=== PATIENT | female | born 1965 | race Caucasian/White ===

== ENCOUNTER 2017-06-05 03:34 | Inpatient (IN) | payer OTHER, MEDICARE ==
[2017-06-05] MEDS: HEPARIN for IV BOLUS 10,000 UNIT/10 ML VIAL. IV (04:14)
[2017-06-05] MEDS: ATROPINE 0.5 MG/5 ML DISP.SYRINGE. IV ×2 (04:14)
[2017-06-05] MEDS: LIDOCAINE 1% PF 2 ML VIAL. IV (04:15)
[2017-06-05] MEDS: HEPARIN 25,000UTS/500ML PREMIX 500 ML IV ×2 (04:16→05:16)
[2017-06-05] MEDS ORDERED: BIVALIRUDIN 250 MG VIAL. IV (04:21)
[2017-06-05] MEDS ORDERED: ONDANSETRON PF 4 MG/2 ML VIAL. IV (04:30)
[2017-06-05] MEDS ORDERED: FLUMAZENIL 0.5 MG/5 ML VIAL. IV (04:52)
[2017-06-05] MEDS: IV NORMAL SALINE 1000ML BAG 1,000 ML IV ×2 (05:00→12:01)
[2017-06-05] MEDS: LIDOCAINE 2% 20 ML VIAL. IJ (05:15)
[2017-06-05] MEDS ORDERED: NITROGLYCERIN SUBLINGUAL 0.4 MG BOTTLE OF 25. SL (05:15)
[2017-06-05] MEDS: NITROGLYCERIN 200 MCG/2 ML SYRINGE FOR CATH/VASC LAB. IART (05:15)
[2017-06-05] MEDS: IODIXANOL 320 MG/ML 100 ML VIAL. IART (05:15)
[2017-06-05] MEDS ORDERED: ACETAMINOPHEN 325 MG TABLET. PO (05:15)
[2017-06-05] MEDS: BIVALIRUDIN 250 MG VIAL. IV (05:16)
[2017-06-05] MEDS: CLOPIDOGREL BISULFATE 75 MG TABLET PO ×2 (05:17→05:48)
[2017-06-05] MEDS: FLUMAZENIL 0.5 MG/5 ML VIAL. IV (05:46)
[2017-06-05] MEDS: IV NORMAL SALINE 500ML BAG 500 ML IV (07:15)
[2017-06-05 08:24] LABS: TROPONINI 1.954 ng/mL (0.000-0.055)
[2017-06-05] MEDS ORDERED: ANTI-COAG MONITOR BY PHARMACY. MC (08:30)
[2017-06-05] MEDS: fentaNYL PF VIAL 100 MCG/2 ML VIAL IV ×2 (09:07→20:30)
[2017-06-05 09:14] LABS: BASO # 0.1 x10^3/uL (0.0-0.2); BASO % 0 % (0-3); EOS % 0 % (0-3); HEMATOCRIT 29.9 % (36.0-47.0); HEMOGLOBIN 9.7 g/dL (12.0-15.5); LYMPH # 1.8 x10^3/uL (1.0-4.8); LYMPH % 10 % (24-48); MEAN CORPUSCULAR HEMOGLOBIN 26 pg (25-35); MEAN CORPUSCULAR HGB CONC 33 g/dL (31-37); MEAN CORPUSCULAR VOLUME 79 fL (79-100); MONO # 0.4 x10^3/uL (0.0-1.1); MONO % 2 % (0-9); NEUT # 16.1 x10^3uL (1.8-7.7); NEUT % 87 % (31-73); PLATELET COUNT 344 x10^3/uL (140-400); RED BLOOD COUNT 3.81 x10^6/uL (3.50-5.40); RED CELL DISTRIBUTION WIDTH 15.9 % (11.5-14.5); WHITE BLOOD COUNT 18.4 x10^3/uL (4.0-11.0)
[2017-06-05 09:15] LABS: ADD MAN DIFF? YES
[2017-06-05 09:25] LABS: ANION GAP 6 (6-14); BLOOD UREA NITROGEN 18 mg/dL (7-20); CALCIUM 7.9 mg/dL (8.5-10.1); CARBON DIOXIDE 26 mmol/L (21-32); CHLORIDE 102 mmol/L (98-107); GFR 58.2; GLUCOSE 270 mg/dL (70-99); POTASSIUM 4.6 mmol/L (3.5-5.1); SODIUM 134 mmol/L (136-145)
[2017-06-05 11:25] LABS: % LYMPHS 7 % (24-48); % MONOS 3 % (0-10); % SEGS 90 % (35-66); PLT ESTIMATE ADEQUATE (ADEQUATE)
[2017-06-05 14:31] LABS: MRSA BY PCR Negative (Negative)
[2017-06-05] MEDS: IV 1/2 NORMAL SALINE 1,000 ML IV ×2 (17:59→18:01)
[2017-06-05 18:45] LABS: POC GLUCOSE 146 mg/dL (70-99)
[2017-06-05] MEDS: ATORVASTATIN CALCIUM 20 MG TABLET PO (21:22)
[2017-06-06] MEDS: fentaNYL PF VIAL 100 MCG/2 ML VIAL IV ×3 (01:05→12:04)
[2017-06-06] MEDS: IV 1/2 NORMAL SALINE 1,000 ML IV ×2 (01:07→11:30)
[2017-06-06 05:05] LABS: ADD MAN DIFF? NO
[2017-06-06 05:08] LABS: BASO # 0.1 x10^3/uL (0.0-0.2); BASO % 1 % (0-3); EOS # 0.1 x10^3/uL (0.0-0.7); EOS % 1 % (0-3); HEMATOCRIT 25.7 % (36.0-47.0); HEMOGLOBIN 8.7 g/dL (12.0-15.5); LYMPH # 2.4 x10^3/uL (1.0-4.8); LYMPH % 23 % (24-48); MEAN CORPUSCULAR HEMOGLOBIN 26 pg (25-35); MEAN CORPUSCULAR HGB CONC 34 g/dL (31-37); MEAN CORPUSCULAR VOLUME 78 fL (79-100); MONO # 0.6 x10^3/uL (0.0-1.1); MONO % 6 % (0-9); NEUT # 7.2 x10^3uL (1.8-7.7); NEUT % 69 % (31-73); PLATELET COUNT 315 x10^3/uL (140-400); RED BLOOD COUNT 3.31 x10^6/uL (3.50-5.40); RED CELL DISTRIBUTION WIDTH 16.3 % (11.5-14.5); WHITE BLOOD COUNT 10.5 x10^3/uL (4.0-11.0)
[2017-06-06 05:24] LABS: ALBUMIN 2.5 g/dL (3.4-5.0); ALBUMIN/GLOBULIN RATIO 0.8 (1.0-1.7); ALK PHOS 101 U/L (46-116); ALT (SGPT) 13 U/L (14-59); ANION GAP 10 (6-14); AST (SGOT) 20 U/L (15-37); BLOOD UREA NITROGEN 15 mg/dL (7-20); BUN/CREATININE RATIO 19 (6-20); CALCIUM 7.7 mg/dL (8.5-10.1); CARBON DIOXIDE 23 mmol/L (21-32); CHLORIDE 107 mmol/L (98-107); CREATININE 0.8 mg/dL (0.6-1.0); GFR 75.3; GLUCOSE 122 mg/dL (70-99); POTASSIUM 4.4 mmol/L (3.5-5.1); SODIUM 140 mmol/L (136-145); TOTAL BILIRUBIN 0.2 mg/dL (0.2-1.0); TOTAL PROTEIN 5.6 g/dL (6.4-8.2)
[2017-06-06 05:27] LABS: TROPONINI 2.438 ng/mL (0.000-0.055)
[2017-06-06] MEDS: CLOPIDOGREL BISULFATE 75 MG TABLET PO (08:52)
[2017-06-06] MEDS: ASPIRIN ENTERIC COATED 325 MG TABLET.DR. PO (08:52)
[2017-06-06 10:06] LABS: CHOLESTEROL 181 mg/dL (0-200); HDLC 29 mg/dL (40-60); LDLC 115 mg/dL (0-100); NON-HDL CHOLESTEROL 152 mg/dL (0-129); TRIGLYCERIDES 183 mg/dL (0-150); VLDLC 37 mg/dL (0-40)
[2017-06-06 10:07] LABS: CHOLESTEROL/HDL RATIO 6.2
[2017-06-06] MEDS: GABAPENTIN 400 MG CAPSULE. PO (11:00)
[2017-06-06 11:19] LABS: RETIC COUNT 1.1 % (0.5-2.5)
[2017-06-06 11:34] LABS: % SAT IRON 12 % (15-34); IRON,SERUM 35 ug/dL (50-170)
[2017-06-06 11:39] LABS: FREE T4 1.04 ng/dL (0.76-1.46)
[2017-06-06 12:22] LABS: ANION GAP 7 (6-14); BLOOD UREA NITROGEN 13 mg/dL (7-20); CALCIUM 8.1 mg/dL (8.5-10.1); CARBON DIOXIDE 28 mmol/L (21-32); CHLORIDE 103 mmol/L (98-107); CREATININE 0.8 mg/dL (0.6-1.0); GFR 75.3; GLUCOSE 219 mg/dL (70-99); POTASSIUM 3.9 mmol/L (3.5-5.1); SODIUM 138 mmol/L (136-145)
[2017-06-06 12:30] LABS: TROPONINI 1.636 ng/mL (0.000-0.055)
[2017-06-06] MEDS: LISINOPRIL 5 MG TABLET. PO (12:47)
[2017-06-06] MEDS: METOPROLOL SUCC 24HR ER 25 MG TAB.ER.24H. PO (12:48)
[2017-06-06] MEDS: ALPRAZolam 0.5 MG TABLET PO (12:49)
[2017-06-06 13:42] LABS: HEMATOCRIT 28.5 % (36.0-47.0); HEMOGLOBIN 9.3 g/dL (12.0-15.5); MEAN CORPUSCULAR HEMOGLOBIN 26 pg (25-35); MEAN CORPUSCULAR HGB CONC 33 g/dL (31-37); MEAN CORPUSCULAR VOLUME 79 fL (79-100); PLATELET COUNT 344 x10^3/uL (140-400); RED BLOOD COUNT 3.62 x10^6/uL (3.50-5.40); RED CELL DISTRIBUTION WIDTH 16.1 % (11.5-14.5); WHITE BLOOD COUNT 10.4 x10^3/uL (4.0-11.0)
== END 2017-06-06 15:30 | disposition home or self-care (01) | DRG 246 ==
LOC: ER 03:34 → 1 WEST ICU 04:25
PROVIDERS: Internal Medicine Cardiovascular Disease
PROC: B2111ZZ Fluoroscopy of Multiple Coronary Arteries using Low Osmolar Contrast (ICD-10-PCS; principal; 2017-06-05)
PROC: 027034Z Dilation of Coronary Artery, One Artery with Drug-eluting Intraluminal Device, Percutaneous Approach (ICD-10-PCS; 2017-06-05)
PROC: B2151ZZ Fluoroscopy of Left Heart using Low Osmolar Contrast (ICD-10-PCS; 2017-06-05)
PROC: 4A023N7 Measurement of Cardiac Sampling and Pressure, Left Heart, Percutaneous Approach (ICD-10-PCS; 2017-06-05)
PROC: 02HV33Z Insertion of Infusion Device into Superior Vena Cava, Percutaneous Approach (ICD-10-PCS; 2017-06-05)
DX: I44.2 Atrioventricular block, complete (principal); I21.19 ST elevation (STEMI) myocardial infarction involving other coronary artery of inferior wall; E11.51 Type 2 diabetes mellitus with diabetic peripheral angiopathy without gangrene; I95.9 Hypotension, unspecified; F11.20 Opioid dependence, uncomplicated; D64.9 Anemia, unspecified; E78.5 Hyperlipidemia, unspecified; F17.210 Nicotine dependence, cigarettes, uncomplicated; F32.9 Major depressive disorder, single episode, unspecified; F41.9 Anxiety disorder, unspecified; I10 Essential (primary) hypertension; I25.119 Atherosclerotic heart disease of native coronary artery with unspecified angina pectoris; Z80.3 Family history of malignant neoplasm of breast; Z80.8 Family history of malignant neoplasm of other organs or systems; Z85.42 Personal history of malignant neoplasm of other parts of uterus; Z89.512 Acquired absence of left leg below knee; Z90.710 Acquired absence of both cervix and uterus; Z95.5 Presence of coronary angioplasty implant and graft; Z96.642 Presence of left artificial hip joint; Z88.2 Allergy status to sulfonamides; Z88.1 Allergy status to other antibiotic agents; Z91.040 Latex allergy status; D50.9 Iron deficiency anemia, unspecified
CPT/HCPCS: 36415; 36556; 71045; 76937; 80048; 80053; 80061; 82962; 83540; 83550; 84439; 84484; 85007; 85025; 85027; 85045; 87641; 92941; 93005; 93306; 93458; 93923; 96374; 96375; 99285; 99285-25; 99406; C1713; C1725; C1769; C1892; J0461; J0583; J1265; J1644; J3010; J3490; J7040